=== PATIENT | female | born 1950 ===

== ENCOUNTER → 2024-06-24 10:23 | Outpatient (REF) | payer MEDICARE, OTHER, SELFPAY | LOC: RAD 10:23 | PROVIDERS: ATTENDING PHYSICIAN Psychiatry & Neurology Neurology; FAMILY PHYSICIAN Family Medicine; REFERRING PHYSICIAN Internal Medicine Rheumatology | DX: G57.01 Lesion of sciatic nerve, right lower limb (principal); M76.01 Gluteal tendinitis, right hip | CPT/HCPCS: 76882 ==

== ENCOUNTER → 2024-07-09 08:31 | Outpatient (REF) | payer MEDICARE, OTHER, SELFPAY | LOC: EMG 08:31 | PROVIDERS: ATTENDING PHYSICIAN Psychiatry & Neurology Neurology | DX: M54.17 Radiculopathy, lumbosacral region (principal); R53.1 Weakness | CPT/HCPCS: 95886; 95910 ==

== ENCOUNTER → 2025-07-20 10:45 | Outpatient (REF) | payer MEDICARE, OTHER, SELFPAY | LOC: RAD 10:45 | PROVIDERS: ATTENDING PHYSICIAN Internal Medicine Cardiovascular Disease; FAMILY PHYSICIAN Family Medicine | DX: I35.0 Nonrheumatic aortic (valve) stenosis (principal) | CPT/HCPCS: 74174; 75572; Q9967 ==

== ENCOUNTER 2025-08-09 07:05 | Day surgery (SDC) | payer MEDICARE, OTHER, SELFPAY ==
[2025-08-09] VITALS (8 sets, daily range): BP systolic 109–191; BP diastolic 65–103; BMI 17.1
--- NOTE | 2025-08-09 09:16 | ITS.CL.CATH ---
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
Cardiac Catheterization
Procedure Report:
CARDIAC CATHETERIZATION REPORT
Date of Procedure: 08/09/2025
Referring: Wilman Lynn D.O.
Indication: Severe aortic valve stenosis, known coronary artery disease.
PROCEDURE:
1. Right heart catheterization.
2. Coronary angiography.
A total of 17 minutes of procedural/moderate sedation was utilized. An independent medical administrative technician was present to assist with and help manage the patient's level of consciousness and physiologic status.
ACCESS:
1. 6 [place] Citizen right common femoral artery using a modified Seldinger technique with a micropuncture kit under ultrasound guidance.
2. 5 [place] right antecubital vein using a previously placed IV.
CATHETERS:
1. 5 [place] Citizen balloon wedge.
2. 5 [place] Citizen JL 3.5.
3. 5 [place] Citizen JR4.
HEMODYNAMIC DATA
Weight (kg): 40.8
AO (s/d/x, mmHg): 214/106/152
LV (s/x, mmHg): Not obtained.
PCWP (a/v/x, mmHg): 42/54/34
PA (s/d/x, mmHg): 54/34/41
RV (s/x, mmHg): 54/15
RA (a/v/x, mmHg): 22/19/15
SVC SvO2 (%): 62.7
IVC SvO2 (%): Not obtained.
RA SvO2 (%): Not obtained.
RV SvO2 (%): Not obtained.
PA SvO2 (%): 55.3
SaO2 (%): 86.6
Hbg (g/dL): 11.2
HEAVEN
CO (L/min): 4.62
CI (L/min/m2): 3.43
Thermodilution
CO (L/min): Not performed.
CI (L/min/m2): Not performed.
TPG (mmHg): 7
PVR (Cano Units): 1.52
SVR (dynes*seconds*cm^-5): 2372
AVO2 Diff (Volume %): 4.77
AV gradient (x, mmHg): Not obtained.
AV area (cm2): Not obtained.
MV gradient (x, mmHg): Not obtained.
MV area (cm2): Not obtained.
LEFT VENTRICULOGRAPHY: Not performed.
AORTOGRAPHY: Not performed.
CORONARY ANGIOGRAPHY
Dominance: Right.
Left Main: Normal size, bifurcating vessel. There is no coronary artery disease.
LAD: Normal size vessel giving rise to several small diagonals. There is a 30-40% lesion in the proximal vessel. A patent stent is visible in the mid vessel. There is no evidence of in-stent restenosis.
Ramus: Congenitally absent.
Circumflex: Large size, nondominant vessel giving rise to 3 obtuse marginals before terminating as a small left posterolateral branch. There is no coronary artery disease. 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
RCA: Small size, dominant vessel that is difficult to engage. There is tapering of the RPDA.
INTERVENTIONS
None.
Closure Device: Manual pressure for the right common femoral artery and right antecubital vein. The patient did require blood pressure control prior to sheath pull.
Radiation dose (mGy): 157
DAP (cm2.Gy): 9.24
Fluoroscopy time (minutes): 7.4
CONCLUSIONS:
1. Right dominant circulation with a small, difficult to engage RCA with tapering of the RPDA, a large nondominant circumflex with a subtle myocardial bridge in the origin of OM 3, a patent stent in the mid LAD and a 30-40% lesion in the proximal
LAD, unchanged from prior cardiac catheterization.
2. Severely elevated filling pressures (PCWP = 34 mmHg at 40.8 kg).
3. Mild postcapillary pulmonary hypertension (mean PA = 41 mmHg, PCWP = 34 mmHg, cardiac output = 4.62 L/min, PVR = 1.52 Cano units), WHO group 2.
4. Occluded right radial artery demonstrated on ultrasound prior to access attempt.
RECOMMENDATIONS:
1. Expectant management after cardiac catheterization via right common femoral approach.
2. Limited weight bearing for one week.
3. Finalize TAVR evaluation.
4. Start furosemide 20 mg daily with BMP in 1 week to monitor renal function.
Resident Physician Manuel Lopez M.D. was present and assisted during the procedure. I was present for and performed all of the critical portions of the procedure.
Copy to: Wilman Lynn D.O., John Lopez D.O., Gui Saravia M.D.
Wilman Lynn DO, FACC, FACP
--- NOTE | 2025-08-09 10:14 | PTCARENOTE ---
Pt arrived from procedure room c/o 'right occular migraine and the right side of my mouth/face feels tight'. Neuro check WNL. Pt's speech is clear and appropriate. No facial droop noted. Pt following commands. Pupils 4mm equal and reactive. Equal
upper and lower extremity strength noted. Normal dorsal and plantar flexion noted. Dunia SANCHEZ aware and in to evaluate pt. Tylenol 1gm PO ordered for headache. No further treatement ordered at this time. Report given to Jeanna Bryant RN.
[2025-08-09] MEDS: TYLENOL 1000 MG PO (10:15)
[2025-08-09] MEDS: NSS 123 ML IV (10:17)
== END 2025-08-09 13:29 | disposition home or self-care (01) ==
LOC: CATH 07:05
PROVIDERS: ATTENDING PHYSICIAN Internal Medicine Cardiovascular Disease; FAMILY PHYSICIAN Family Medicine; OTHER PHYSICIAN Internal Medicine Cardiovascular Disease
DX: I25.10 Atherosclerotic heart disease of native coronary artery without angina pectoris (principal); I35.0 Nonrheumatic aortic (valve) stenosis; I27.20 Pulmonary hypertension, unspecified; Z95.5 Presence of coronary angioplasty implant and graft; Z79.82 Long term (current) use of aspirin; Z79.52 Long term (current) use of systemic steroids; K22.70 Barrett's esophagus without dysplasia; I11.0 Hypertensive heart disease with heart failure; I50.22 Chronic systolic (congestive) heart failure; Q24.5 Malformation of coronary vessels
CPT/HCPCS: 93456; 93460; C1894; Q9967

== ENCOUNTER 2025-09-09 05:20 | Inpatient (IN) | payer MEDICARE, OTHER, SELFPAY ==
[2025-08-30 13:05] LABS: Hematocrit 31.3 % (37.0-47.0); Hemoglobin 10.0 g/dL (12.0-16.0); INR 1.01; Mean Corp Hgb Conc. 31.9 g/dL (33.0-37.0); Mean Corpuscular Volume 89.4 fL (81.0-99.0); Nucleated Red Blood Cells % 0 %; PT 13.6 Sec (11.4-14.6); Platelet Count 261 10^3/uL (130-400); Red Cell Dist. Width 17.0 % (11.5-14.5)
[2025-08-30 13:16] LABS: Urine Character Clear (Clear)
[2025-08-30 13:40] LABS: ALT (SGPT) 16 U/L (0-35); AST (SGOT) 29 U/L (14-36); Albumin 4.1 g/dl (3.5-5.0); Alkaline Phosphatase 40 U/L (38-126); Blood Urea Nitrogen 18 mg/dl (7-17); Calcium 9.0 mg/dl (8.4-10.2); Carbon Dioxide 25 mmol/L (22-30); Chloride 103 mmol/L (98-107); Glucose 96 mg/dl (70-99); Potassium 4.3 mmol/L (3.5-5.1); Sodium 133 mmol/L (135-145); Total Protein 6.7 g/dl (6.3-8.2); eGFR > 60.00
[2025-08-30 13:52] VITALS: BMI 17.3
--- NOTE | 2025-08-30 14:01 | CM ---
Met with and Mrs. Garcia in [facility]'. She states prior to admission she resides with her spouse in a two story home with two steps to enter. She states she uses a stair glide to get to the second floor where the bedroom and full bathroom are
located. She states she has a powder room on the first floor. She states prior to admission she ambulates with a rollator and independent with adls. She states she has a rollator and stair glide in the home. She states she has a prescription plan
and uses [facility]. The discharge plan is to return home with her spouse and a home visit by the Transitional Care Nurse when medically stable.
We reviewed pre-op and post-op routines. We reviewed the shower instructions. She has the soap, written instructions and the TAVR Educational Booklet. We also reviewed restrictions including driving and lifting restrictions. We discussed a home
visit by the Transitional Care Nurse. She is agreeable to a home visit. The plan is for TAVR on August.
[2025-08-30 14:50] LABS: Glycohemoglobin (HgbA1c) 5.8 % (4.0-5.6)
[2025-09-09] VITALS (18 sets, daily range): BP systolic 92–189; BP diastolic 45–97; BMI 16.5
--- NOTE | 2025-09-09 06:11 | PTCARENOTE ---
Pt rec'd to room accompanied by spouse and family members via w/c. Pt washed with CHG wipes. new 22g placed in left wrist. ABO sent to lab. Pt then clipped for procedure and adm hx taken and recorded
--- NOTE | 2025-09-09 06:25 | W.CVOR.SURPR ---
CVOR Surgeon Immed Pre Op
-
CARDIAC SURGERY ATTENDING:
I have examined this patient prior to performance of the scheduled procedure.
The patient's condition is unchanged from the time of the dictated/written History and
Physical and the patient is able to undergo the scheduled procedure.
I had another nice conversation with Mrs. Mariel Garcia and her family at bedside this morning. At the time of her office visit, she was unsure her desires with respect to surgical rescue. This morning she relates that she would not want
sternotomy for any reason, but would consent to 'smaller' procedures if necessary such as pericardiocentesis, subxiphoid pericardial window, peripheral vascular procedures, etc.
Will proceed with TAVR today
Kamaljit Messer M.D.
[phone]
[2025-09-09 08:29] LABS: ACT-LR - POC 258 Seconds (116-155)
--- NOTE | 2025-09-09 08:35 | W.IMMPOSTOP ---
Surgical Immed Post Op Note
-
[id number]
STRUCTURAL HEART PROCEDURE NOTE:
Preoperative Dx:
Severe aortic stenosis, mean valve gradient 35 to 40 mmHg calculated ARVIND of 0.5, DI 0.2
CAD
RA
Glaucoma/macular degeneration
History of Momin's esophagus
History of CHF
Postoperative Dx:
Same
Procedures:
1. Right CELLULAR BIOLOGIST access with tactile, ultrasound, and fluoroscopic guidance, micropuncture technique, limited angiography, 8 [place] dilator placement
2. Placement of Perclose sutures x 2 into right CELLULAR BIOLOGIST, 8 [place] sheath placement
3. Left CFV access with ultrasound and fluoroscopic guidance, micropuncture technique, long 6 [place] sheath placement
4. Left CELLULAR BIOLOGIST access with tactile, ultrasound, and fluoroscopic guidance, micropuncture technique, limited angiography, long 6 [place] sheath placement
5. Placement of temporary pacing wire via left CFV access under fluoroscopic guidance with threshold testing
6. Placement of pigtail catheter in RCC with limited aortography and confirmation of coplanar valve deployment angles
7. Placement of Desai E sheath via right common femoral arterial access
8. Wire purchase across patient's stenotic aortic valve (AL-1, soft-tipped straight, LVEDP assessment (15 mmHg), pigtail repositioning of extra-stiff wire)
9. Right TF TAVR with placement of 23 mm APOLINAR 3 Resilia valve
10. Completion aortography
11. Completion TTE assessment (mean gradient 3 mmHg, trace PVL)
12. Removal of Desai E sheath from right common femoral artery with management with Perclose sutures x 2; manual pressure
13. Completion right iliofemoral angiography
14. Removal of left CELLULAR BIOLOGIST 6 [place] sheath with management with 6 [place] Angio-Seal; manual pressure
15. Removal of left CFV 6 [place] sheath with management with manual pressure
Movers:
Dr. Wilman Lynn
Cardiac Surgeon:
Dr. Kamaljit Messer
Anesthesia:
MAC and local to bilateral groins
Cath data:
Start: 0750 hrs., Deploy: 20 hrs., End: 08 hrs.
FT: 6.3min, mGy: 62.4, DAP: 6.8, Contrast: 53mL
Post-TTE: mean gradient 3mmHg, trace PVL
Implants:
Desai Lifesciences 23 mm APOLINAR 3 valve, serial number: [id number]
Perclose x 2 to right CELLULAR BIOLOGIST
6 [place] Angio-Seal x 1 to left CELLULAR BIOLOGIST
Complications:
None
Condition:
Stable/guarded to recovery
--- NOTE | 2025-09-09 08:42 | ITS.CL.TAVR ---
Neuro Urologist - TAVR Report
TAVR PRocedure
Procedure Report:
TRANSCATHETER AORTIC VALVE REPLACEMENT REPORT
Date: 09/09/2025
Referring physician: John Lopez D.O.
Preop diagnosis: Severe aortic valve stenosis.
Postop diagnosis: Severe aortic valve stenosis.
Procedure: Transcatheter aortic valve replacement (TAVR) using a #23 Desai JAVAD S3 Ultra Resilia THV.
Operators: Wilman Lynn DO, Matthew Thomas, M.D.
Findings: Severely calcified and stenotic aortic valve.
Anesthesia: Conscious sedation was provided by the anesthesia staff.
Estimated blood loss: Negligible.
Complications: None.
Condition: Stable
Procedure:
The patient was brought to the cardiac organic lab worker after consent and was prepped and draped in standard sterile fashion. Conscious sedation was provided by the anesthesia staff. After a 'Time Out,' bilateral common femoral arteries and the left
common vein were access using a modified Seldinger technique with a micropuncture kit under ultrasound guidance. A 6 [place] sheath was placed in the left femoral vein. Angiography performed through the micropuncture sheath confirmed satisfactory
arterial placement in the left common femoral artery. The micropuncture sheath was replaced with a 6Fr sheath in the left NETWORK SUPPORT TECHNICIAN. Angiography through the micropuncture kit confirmed satisfactory arterial placement in the right common femoral artery.
The right NETWORK SUPPORT TECHNICIAN was dilated with an 8FR dilator and preclosed with two Perc-Close devices. An 8Fr sheath was placed in the RCFA. A temporary pacing wire was advanced through the left femoral vein and into the right ventricle. The pacemaker
demonstrated good capture and was set to back up. A 5Fr pigtail catheter was advanced through the left femoral sheath and seated in the right coronary cusp. Angiography confirmed co-planar angles.
An AL-1 catheter was advanced through the 8Fr sheath, the J wire was exchanged for an Amplatz Extra-Stiff wire and the catheter and the 8 Fr sheath was removed. The 14 Fr Desai E-Sheath was inserted over the wire and into the descending aorta.
Heparin 5000 units was given. The JAVAD S3 was prepared on the back table. Orientation was confirmed by both physicians. The AL-1 catheter was re-advanced through the E-sheath to the level of the ascending aorta. The Extra-Stiff wire was
removed and a soft tip straight wire was advanced through the AL-1. The straight tip wire was used to cross the aortic valve and the catheter was advanced into the left ventricle. The straight wire was removed. Left ventricular pressure was
measured. An Amplatz Extra-Stiff wire with curved proximal end was advanced through the catheter and into the left ventricular apex. The catheter was removed. ACT was checked and confirmed to be > 250 seconds.
The valve was advanced over the Extrastiff wire and into the descending aorta. The balloon was pulled back and the valve was mounted on the balloon. The valve was advanced through the aortic arch and into the aortic valve annulus. The pusher
device was withdrawn to allow for balloon expansion. Low volume aortography confirmed good position of the valve. The valve was deployed during rapid ventricular pacing. Echocardiography and aortography confirmed a good result with trace aortic
valve insufficiency and a 3 mmHg mean gradient. The valve deployment system was removed. The Desai E-Sheath was then removed and hemostasis obtained with the two Perc-Close sutures. Final angiography demonstrated no evidence of ileofemoral
dissection/perforation and good runoff below the common femoral artery. The pacemaker and the pigtail catheter were removed. The left femoral artery sheath was removed using a 6 Moroc[place] Angio-Seal. The left femoral venous sheath was removed and
manual pressure was applied with excellent hemostasis. Protamine 30 mg was administered.
Radiation
Dose (mGy): 62.4
DAP (cm2.Gy): 6.8
Fluoroscopy time (minutes): 6.3
TAVR Echo Gradient (mmHg): 3
LV (s/x, mmHg): 203/15 (A wave to 25)
TAVR Cath Gradient (mmHg): Not obtained.
Conclusions:
1. Successful placement of #23 Javad S3 Ultra aortic valve via right transfemoral approach with no acute complications.
2. Mildly elevated filling pressures (LVEDP = 15 at 40.0 kg) with evidence of diastolic dysfunction (A wave to 25 mmHg).
Wilman Lynn, DO, FACC, FACP
Copy to: John Lopez D.O., Gui Saravia M.D.
[2025-09-09] MEDS: LEVOPHED 250 IV (08:52)
--- NOTE | 2025-09-09 10:25 | CM ---
pt in OR today, cm to follow.
--- NOTE | 2025-09-09 10:25 | PTCARENOTE ---
Patient received from general production laborer. AO x3. SB HR 55, BP 119/60, POX 97% on room air. Femoral sites CDI, +1 DP. HOB flat, call mann reach
[2025-09-09] MEDS: DELTASONE PO (11:26)
[2025-09-09] MEDS: PRED FORTE 1% EYE DROPS BOTH EYES (11:27)
[2025-09-09] MEDS: RESTASIS 0.05% OPHTHALMIC EMULSION BOTH EYES (11:27)
--- NOTE | 2025-09-09 12:54 | PTCARENOTE ---
Patient tolerated bedrest. HOB elevated. Femoral sites CDI. Lunch ordered. Voided 800 cc of pale yellow urine on the bedpan. VSS, NSR on telemetry, family at bedside
--- NOTE | 2025-09-09 13:30 | PTCARENOTE ---
OOB in chair, voided in the bathroom. VSS, femoral sites CDI
[2025-09-09] MEDS: TIMOPTIC 0.5% OPHTHALMIC SOLUTION 1 DROP BOTH EYES (17:30)
[2025-09-09] MEDS: ANCEF 5 IV (17:30)
[2025-09-09] MEDS: TOPROL XL 25 MG PO (18:03)
[2025-09-09] MEDS: TYLENOL 650 MG PO (19:29)
[2025-09-09] MEDS: RESTASIS 0.05% OPHTHALMIC EMULSION 1 DROPS BOTH EYES (19:30)
[2025-09-09] MEDS: ATIVAN 1 MG PO (20:39)
[2025-09-09] MEDS: NEURONTIN 200 MG PO (21:11)
[2025-09-09] MEDS: CRESTOR 5 MG PO (21:11)
--- NOTE | 2025-09-10 00:14 | PTCARENOTE ---
Received pt @ change of shift. AAOx3, VSS-- NSR on monitor. Right femoral site clean, dry, and intact. No swelling or ecchymosis present. Soft to touch. Left femoral site clean, dry, and intact. No swelling or ecchymosis present. Soft to touch. Pt
c/o whole body pain 04/03 (due to RA)-- Tylenol given-- see JAN. Pt denied other pain medication. Discussed plan of care. Pt verbalizes understanding. Call mann within reach.
--- NOTE | 2025-09-10 02:45 | W.PN.CT ---
Today's Communication / Plan
-
-POD#1
-OAC plan: ASA
-check EKG
-check echo
-OOB
-discharge planning
Assessment / Plan
-
s/p Right transfemoral TAVR with a Desai Lifesciences 23 mm APOLINAR 3 valve POD#1
-Severe
-CAD.
-RA
-Glaucoma/macular degeneration.
-History of Momin's esophagus.
-History of CHF.
Subjective
Procedure
s/p Right transfemoral TAVR with a Desai Lifesciences 23 [address] APOLINAR [address] Messer on 09/09/25
-
Date of Service: September 10, 2025
Objective Data
-
Lab Results
09/10/25 03:11
09/10/25 03:11
PT 13.6 Sec (11.4-14.6) 08/30/25 12:28
INR 1.01 08/30/25 12:28
Vital Signs
Vital Signs
Temp Pulse Resp BP Pulse Ox
98.7 F 68 18 140/68 96
09/10/25 03:04 09/10/25 04:30 09/10/25 03:04 09/10/25 02:57 09/10/25 03:04
CT Intake/Output/Weight
09/09/25 09/09/25 09/10/25
06:59 18:59 06:59
Intake Total 700 / 700
Output Total 1000 / 1450 450 / 1450
Balance -300 / -750 -450 / -750
SaO2: 97
Physical Exam
-
General: AOx3
Cardiovascular: Regular rate & rhythm
Respiratory: Clear
Incision: Dressing Intact
Extremities: No Edema
[2025-09-10 02:57] VITALS: BP 140/68
[2025-09-10 04:08] LABS: Hematocrit 26.7 % (37.0-47.0); Hemoglobin 8.7 g/dL (12.0-16.0); Mean Corp Hgb Conc. 32.6 g/dL (33.0-37.0); Mean Corpuscular Volume 87.5 fL (81.0-99.0); Platelet Count 194 10^3/uL (130-400); Red Cell Dist. Width 16.7 % (11.5-14.5)
[2025-09-10 04:33] LABS: Blood Urea Nitrogen 24 mg/dl (7-17); Calcium 9.0 mg/dl (8.4-10.2); Carbon Dioxide 24 mmol/L (22-30); Chloride 107 mmol/L (98-107); Estimated Creatinine Clearance 33 ml/min; Glucose 108 mg/dl (70-99); Potassium 3.7 mmol/L (3.5-5.1); Sodium 138 mmol/L (135-145); eGFR > 60.00
[2025-09-10 05:46] VITALS: BMI 16.9
--- NOTE | 2025-09-10 07:18 | W.PN.ANS.POP ---
Anesthesia Post Operative
- Anesthesia Post Op Note
Vital Signs Stable-See Nursing Note: Yes
Airway Patent: Yes
Adequate Pain Control: Yes
Change in Mental Status: No
Current Postoperative Nausea & Vomiting: No
Anesthesia Complications: No
General Anesthetic Recall: No
Unplanned Admission: No
Post Op Hydration Adequate: Yes
[2025-09-10] MEDS: KCL 40 MEQ PO (08:14)
[2025-09-10] MEDS: DELTASONE 2.5 MG PO (08:15)
[2025-09-10] MEDS: RESTASIS 0.05% OPHTHALMIC EMULSION 1 DROPS BOTH EYES (08:15)
[2025-09-10] MEDS: ASPIR LOW (ENTERIC COATED) 81 MG PO (08:15)
[2025-09-10] MEDS: FOLVITE 1 MG PO (08:15)
[2025-09-10] MEDS: THERAGRAN 1 TABLET PO (08:15)
[2025-09-10] MEDS: PROTONIX 40 MG PO (08:15)
[2025-09-10] MEDS: PRED FORTE 1% EYE DROPS 1 DROP BOTH EYES (08:16)
--- NOTE | 2025-09-10 08:20 | W.PN.CD ---
Today's Communication / Plan
-
Echocardiogram pending.
Discharge planning.
Outpatient CBC early next week to monitor stability.
Impression / Plan
-
Impression/Plan: 75 y/o female with RA, CAD and severe admitted for elective TAVR.
#Severe aortic valve stenosis
-Chronic, progressive.
-S/P #23 Desai JAVAD S3 TAVR via RCFA.
-Antithrombotic therapy with aspirin.
-EKG shows NSR. Telemetry shows NSR with one burst of ATach.
-Bilateral access sites are C/D/I.
-Echocardiogram pending.
-Anemia noted (8.7 <-- 10). No outward signs of bleeding. Outpatient CBC early next week to monitor for stability.
#CAD
-Chronic, stable.
-No angina.
-Continue aspirin, metoprlol, rosuvastatin.
#HTN
-Chronic, stable.
-Continue metoprolol.
#RA
-Chronic, stable.
#Dispo
-Discharge planning.
Subjective/Interval History:
TAVR yesterday.
DATA:
TAVR, 09/09/2025:
Conclusions:
1. Successful placement of #23 Javad S3 Ultra aortic valve via right transfemoral approach with no acute complications.
2. Mildly elevated filling pressures (LVEDP = 15 at 40.0 kg) with evidence of diastolic dysfunction (A wave to 25 mmHg).
Physical Exam
Vital Signs/Labs
Vital Signs
Temp Pulse Resp BP Pulse Ox
37.1 C 68 18 140/68 96
09/10/25 03:04 09/10/25 04:30 09/10/25 03:04 09/10/25 02:57 09/10/25 03:04
09/08/25 09/09/25 09/10/25
11:59 11:59 11:59
Actual Weight 39.7 kg 40.5 kg
09/10/25 03:11
09/10/25 03:11
PT 13.6 Sec (11.4-14.6) 08/30/25 12:28
INR 1.01 08/30/25 12:28
08/30/25
12:28
Vlq-[id number]-Crkperxkycn Pept 5100
Physical Exam
Constitutional: No acute distress and Comfortable
EENT: Anicteric and Moist mucous membranes
Cardiovascular: Rhythm & rate is regular, Pedal edema is absent, JVD pressure is normal, S1S2 is normal and Murmur/rub/gallop absent
Respiratory: Respiratory effort normal, Lungs clear to auscul., Wheeze Absent, Crackles Absent and Rhonchi Absent
GI: Soft, Distention absent, Flat, Non tender and Normal bowel sounds
Neuro/Psych: AO x 3
Other: Cath Site (Bilateral access sites are C/D/I.)
Data Reviewed
-
Date of Service: September 10, 2025
Medical Decision Making: Reviewed Test Results, Independent Historian Assessment and Test Interpretation
EKG: Tracing Personally Visualized and interpreted and Report Reviewed by me
Echo: Tracing Personally Visualized and interpreted and Report Reviewed by me
X-Ray/CT/US/MRI/NUC/PET: Image Personally Visualized and interpreted and Report Reviewed by me
Medical Tests (PFT, Pathology etc): Image Personally Visualized and interpreted and Report Reviewed by me
Labs: Labs Reviewed by me
[2025-09-10 08:37] VITALS: BP 130/66
--- NOTE | 2025-09-10 09:53 | W.DCSUMMARY ---
Discharge Summary
Discharge Data
Date of Admission: 09/09/25
Date of Discharge: 09/10/25
-
Pending Results: No
Hospital Course
Primary care physician: Gui Saravia
Outpatient motor vehicle parts interpreter: John Lopez
Inpatient consultants: [facility] Cardiology
Procedures:
1. Right transfemoral TAVR
Primary Diagnosis:
1. severe aortic stenosis
Secondary Diagnoses:
1. CAD with patent LAD stent
2. Rheumatoid arthritis on Methotrexate/steroid
3. Glaucoma/macular degeneration
4. History of Momin's esophagus
5. History of CHF
6. Acute post-op hypotension-expected
HPI: 75-year-old female was electively admitted 09/09/2025 for TAVR.
Hospital course: Patient was taken to the [facility]at Overhauler and underwent a right transfemoral TAVR #23 mm APOLINAR [address] Kamaljit Messer and Wilman Lynn. For further details please see operative note. Preprocedure LVDP was 15. Patient required Levophed
infusion briefly in Vat Overhauler recovery for expected postop transient hypotension. Bilateral groin sites remain stable. Postoperative day #1 ECG reported sinus rhythm at 67 bpm. Low dose aspirin was resumed. Chest x-ray without acute pulmonary
abnormality. TTE reported an EF of 55-60%, AV gradients 14/8 mmHg and no aortic regurgitation. Patient ambulated and is deemed stable for discharge. Labs on day of discharge: Hemoglobin 8.7 (from 10), WBC 12.5, platelets 194K, K3.7 (repleted),
creatinine 0.9. Patient will be followed by transitional nurse team and have CBC repeated on 09/13/2025.
Home medication changes:
none
Discharge Plan
-
Patient Disposition: Home (Routine Discharge)
Discharge Diagnosis/Procedures: TF-TAVR 09/09/25
Condition: Good
Diet: 2 Gram Sodium
Activity: As tolerated
Driving Restrictions: No driving for 1 week
Bathing Restrictions: OK to Shower
Blood Work: CBC on 09/13
Others Tests: Please call Dr. Lopez's office to schedule an echocardiogram for 30 days following your TAVR
Other Services: Cardiac Rehab
Wound Care: Please do not apply lotions, creams or powders to groin areas. Please monitor for increased redness, pain, swelling or drainage. Notify your doctor if any occur.
Specialty Instructions: Weigh Daily- Call MD for wt gain/loss 3 lbs overnight/5 lbs in 1 week
Referrals:
Deisi Medina GLOBE CLEANER - Cardiology [Other]
CT Transitional Care Nurse [Outside]
Referral Note:
The Cardiothoracic Transitional Care Nurse will call you to set up a visit in 1-2 days.
Gui Saravia MD [Family Provider]
Prescriptions:
Continued
acetaminophen 500 mg Tablet
500 mg PO Q6HPRN PRN (Reason: mild pain)
lorazepam 1 mg Tablet
1 mg PO BID PRN (Reason: anxiety)
multivitamin Tablet
1 tab PO DAILY Qty: 0 0RF
aspirin 81 mg Tablet,Delayed Release (Dr/Ec)
81 mg PO DAILY Qty: 0 0RF
prednisolone acetate 1 % Drops,Suspension
1 drp BOTH EYES DAILY Qty: 0 0RF
cyanocobalamin (vitamin B-12) 500 mcg Tablet
500 mcg PO DAILY Qty: 0 0RF
prednisone 2.5 mg Tablet
2.5 mg PO DAILY Qty: 0 0RF
pantoprazole 40 mg Tablet,Delayed Release (Dr/Ec)
40 mg PO DAILY Qty: 0 0RF
folic acid 1 mg Tablet
1 mg PO DAILY Qty: 0 0RF
gabapentin 100 mg Capsule
200 mg PO HS Qty: 0 0RF
metoprolol succinate 25 MG tablet extended release 24 hr
25 mg PO QPM Qty: 0 0RF
rosuvastatin 5 mg Tablet
5 mg PO HS Qty: 0 0RF
timolol maleate 0.5 % Drops, Once Daily
1 drp OPHTHALMIC (EYE) QPM Qty: 0 0RF
cyclosporine 0.05 % Drops
1 drp OPHTHALMIC (EYE) BID Qty: 0 0RF
Calcium 600 + D(3)
1 tab PO HS Qty: 0 0RF
methotrexate sodium 2.5 mg Tablet
7.5 mg PO WE Qty: 0 0RF
Changed
furosemide [Lasix] 20 mg tablet
20 mg PO Q48H Qty: 0 0RF
Rx Instructions:
if patient gains 2 pounds she can take daily
Discharge Orders:
Discharge Patient (As Directed); Ordered 09/10/25
Ordered By: Sweta Bojorquez
Care Plan Goals
Care Plan Goals:
Problem: Readiness for enhanced knowledge related to diagnosis and treatment plan
Goal: Understand your diagnosis and treatment plan needs, including medications if applicable.
Instructions: Know your diagnosis, underlying causes and treatment plan options, including medications if applicable. Consult with your health care team to learn about your diagnosis and treatment plan, including medications if applicable.
Discharge Date and Time
Print Language: NORWEGIAN
[2025-09-10 10:34] VITALS: BP 148/62
[2025-09-10 10:50] VITALS: BP 148/62; BP 165/79; PULSE 71; O2SAT 97; O2SAT 98
[2025-09-10] MEDS: LASIX 20 MG PO (11:23)
--- NOTE | 2025-09-10 13:19 | PTCARENOTE ---
Assumed care of the pt @ 0700. Pt is AAOx3 SR on the monitor VSS. b/l groin sites c/d/i. Pt denies pain at this time. Pt ambulated in hallway with PCT and with Cardiac Rehab. Call mann within reach.
--- NOTE | 2025-09-10 15:06 | PTCARENOTE ---
Pt was discharged to home with family. Pt was given wriitten and verbal d/c instructions. Pt verbalized understanding. Prior to leaving classroom monitor and PIV removed. Pt was escorted out by wheelchair along with and daughter.
[2025-09-14 07:03] LABS: ACT-LR - POC 313 Seconds (116-155)
== END 2025-09-10 14:40 | disposition home or self-care (01) | DRG 267 ==
LOC: IVU 05:20
PROVIDERS: Internal Medicine Cardiovascular Disease; Nurse Practitioner; ADMITTING PHYSICIAN Student in an Organized Health Care Education/Training Program; ATTENDING PHYSICIAN Thoracic Surgery (Cardiothoracic Vascular Surgery); FAMILY PHYSICIAN Family Medicine
PROC: 02RF38Z Replacement of Aortic Valve with Zooplastic Tissue, Percutaneous Approach (ICD-10-PCS; 2025-09-09)
DX: I35.0 Nonrheumatic aortic (valve) stenosis (principal); Z00.6 Encounter for examination for normal comparison and control in clinical research program; I25.10 Atherosclerotic heart disease of native coronary artery without angina pectoris; Z79.631 Long term (current) use of antimetabolite agent; M06.9 Rheumatoid arthritis, unspecified; H35.30 Unspecified macular degeneration; H40.9 Unspecified glaucoma; I95.81 Postprocedural hypotension
CPT/HCPCS: 33361; 36415; 71045; 71046; 80048; 80053; 81003; 82248; 83036; 83880; 85025; 85027; 85347; 85610; 86850; 86900; 86901; 86920; 87070; 93005; 93308; 93321; 93325; C1760; C1769; Q9967